=== PATIENT | female | born 2005 | race Caucasian/White ===

== ENCOUNTER 2025-08-19 16:17 | Emergency (ER) | payer OTHER, SELFPAY ==
[2025-08-19 16:20] VITALS: BP 133/87
--- NOTE | 2025-08-19 18:35 | ED.GENMED ---
History of Present Illness
General
Chief Complaint: Head Injury
Source: patient and family
Exam Limitations: none
Time Seen by Provider: 08/19/25 18:21
Nursing documentation reviewed up to this point in time: agreed with
History of Present Illness
History of Present Illness:
19-year-old female with history of migraines, takes rizatriptan as needed is here for a headache post head injury. About 3:30 PM she was standing next to her horse to get pictures when it reared up, one of his legs went over her shoulder and the
other leg came down on the top of her head and she fell to the ground. There was no loss of consciousness, a witness who is in the room with her said she was able to sit right up, they sat her there for about 5 minutes and she was able to get up
and ambulate normally. She states she has a headache basically on slightly to the left top of her head 5/10, denies change in vision. Denies N/V. Her vision has been light sensitive. She states her neck is starting to get stiff. She denies any
other injury from the fall.
Past History
Past History
ED Past Medical History: Psychiatric ( takes sertraline) and Other (Migraines)
Social History
Tobacco: Non-smoker
Personal: Single
Living: with family
Employment: Student
Review of Systems
Review of Systems
Allergies reviewed?: Yes
All Other Systems: ROS reviewed and negative except as documented in HPI and ROS
Respiratory: Denies trouble breathing
Cardiac: Denies chest pain or syncope
ABD/GI: Denies abdominal pain, nausea or vomiting
Musculoskeletal: Reports neck pain; Denies back pain
Skin: Reports no symptoms
Neurological: Reports headache; Denies dizzy, weakness or numbness
Phy Exam
Physical Exam
Physical Exam:
GENERAL: No acute distress. A&Ox3.
CONSTITUTIONAL: Afebrile.
Head: Normocephalic/atraumatic. Mildly tender top of head slightly to the left, no swelling, skin intact
EYES: clear, conjunctivae normal
ENMT: moist mucus membranes, Pharynx nl
RESPIRATORY: Regular respirations, nonlabored, lungs clear.
CARDIOVASCULAR: Regular rate and rhythm, no murmurs, no rubs.
GI: Soft, nontender, normal BS
MUSCULOSKELETAL: Moves with ease. Well perfused.
SKIN: Warm, dry, pink
PSYCH: Normal mood and affect. Well kept, interactive and appropriate
NEUROLOGIC: Awake, alert and oriented. Cranial nerves II through XII intact. No focal neurological deficits
Course
Orders/Labs/Results
Orders:
Orders
08/19/25 16:[address] [CT Head W/o Iv Contrast] Urgent
Comment:
Reason For Exam: head injury
Vital Signs
Initial and Last Documented VS:
Initial Vital Signs
Temp Pulse Resp BP Pulse Ox
98 F 93 16 133/87 97
08/19/25 16:20 08/19/25 16:20 08/19/25 16:20 08/19/25 16:20 08/19/25 16:20
Last Documented Vital Signs
Temp Pulse Resp BP Pulse Ox
98 F 93 16 133/87 97
08/19/25 16:20 08/19/25 16:20 08/19/25 16:20 08/19/25 16:20 08/19/25 18:40
MDM/Problems Addressed
Differential Diagnosis Includes:
post traumatic headache, concussion
MDM/Problems Addressed:
19-year-old female with history of migraines, takes rizatriptan as needed is here for a headache post head injury. About 3:30 PM she was standing next to her horse to get pictures when it reared up, one of his legs went over her shoulder and the
other leg came down on the top of her head and she fell to the ground. There was no loss of consciousness, a witness who is in the room with her said she was able to sit right up, they sat her there for about 5 minutes and she was able to get up
and ambulate normally. She states she has a headache basically on slightly to the left top of her head 5/10, denies change in vision. Denies N/V. Her vision has been light sensitive. She states her neck is starting to get stiff. She denies any
other injury from the fall.
Head CT Shows no acute intracranial abnormality.
neuro exam is normal
Pt OOB and ambulated out with normal gait at discharge
*Pulse Oximetry
SaO2: 97
Oxygen Mode of Delivery: Room air
Patient hypoxic: no
*Critical Care Note
Total Time (30-74mins, 75-104mins- exclusive of procedures): Not Applicable
ED Attending Note
-
Portions of this chart may have been created with voice recognition software.� Occasional wrong word or��sound alike� substitutions may have occurred due to the inherent limitations of voice recognition software.
Discharge Plan
Departure
Patient Disposition: Home (Routine Discharge)
Date of Disposition: 08/19/25
Time of Disposition: 18:40
Patient with high blood pressure during this ER visit?: No
Condition: Good
Discharge Problem:
Head injury, Head injury, acute, without loss of consciousness, Acute post-traumatic headache
Instructions: Concussion, Adult (DC), Head Injury in Adults (DC)
Referrals:
Darin Mccormack III DO [Family Provider, Pediatrics] - As needed
Activity Restrictions/Additional Instructions:
As we discussed, your CAT scan is normal
Tylenol as needed for headache.
If your headache changes and becomes similar to your migraines it is reasonable to use your rizatriptan and naproxen
Worrisome signs of a head injury include repeated vomiting, confusion, headache that gets worse or worse despite medication and you should seek medical care immediately if these occur.
Take it easy for the next 24 hours, no riding horses or high-level activity, then activity as tolerated.
See your doctor for recheck if you are not a LOT BETTER in 3 days or not 100% better in one week.
Interventions
Interventions:
*Risk Screen - Suicide Last Done: 08/19/25 16:22
*General Assessment Last Done: 08/19/25 18:05
*Neglect/Abuse Screening Last Done: 08/19/25 16:22
*ED- Fall Risk Assessment Last Done: 08/19/25 18:05
*Nursing Disposition Last Done: 08/19/25 18:55
ED- Neurological Assessment Last Done: 08/19/25 18:05
ED-Skin Assessment Last Done: 08/19/25 18:05
Discharge Date and Time
Discharge Date/Time: 08/19/25 18:55
Print Language: [id number]
== END 2025-08-19 18:55 | disposition home or self-care (01) ==
LOC: EMR 16:17
PROVIDERS: EMERGENCY PHYSICIAN Emergency Medicine; FAMILY PHYSICIAN Student in an Organized Health Care Education/Training Program
DX: S06.9X9A Unspecified intracranial injury with loss of consciousness of unspecified duration, initial encounter (principal); G44.319 Acute post-traumatic headache, not intractable; W19.XXXA Unspecified fall, initial encounter
CPT/HCPCS: 99284; 70450